=== PATIENT | female | born 1990 | race Two or more races ===

== ENCOUNTER 2023-10-25 07:37 | Emergency (ER) | payer OTHER, SELFPAY ==
[2023-10-25 07:40] VITALS: BP 140/76
[2023-10-25 08:06] LABS: COVID-19 Antigen Positive (Negative)
--- NOTE | 2023-10-25 09:53 | ED.GENMED ---
History of Present Illness
General
Chief Complaint: Cough
Source: patient
Exam Limitations: none
Time Seen by Provider: 10/25/23 09:17
Nursing documentation reviewed up to this point in time: agreed with
Travel History
Have you had any contact with someone who has COVID-19?: No
Do you have any symptoms of coronavirus? Fever > 100 degrees, chills, cough, shortness of breath, sore throat, loss of taste or smell, muscle aches, or headache?: Yes
Symptoms:: cough
History of Present Illness
History of Present Illness:
pt is a 32 y/o F with no sig pmh
Here with 2 days of URI symptoms, subjective fevers and chills, sore throat and a cough. She is not having any productivity of a cough. She is here requesting a COVID and flu test. No other family members are sick. She is not having any
shortness of breath. Patient denies nausea vomiting and diarrhea. She did not take any Tylenol today.
Patient is vaccinated for COVID
Past History
Past History
ED Past Medical History: None
ED Past Surgical History: None
Patient has exhibited threatening behavior?: No
Social History
Tobacco: Non-smoker
Alcohol: None
Drug: None
Review of Systems
Review of Systems
Allergies reviewed?: Yes
All Other Systems: Not applicable
Phy Exam
Physical Exam
Physical Exam:
GENERAL: Alert , in no apparent distress
EYE: pupils equal and reactive
NECK: Supple
ENT: b/l TM s clear, pharynx erythematous but no tonsillar hypertrophy or exudates
CARDIAC: Regular rate and rhythm, no edema
LUNGS: Clear breath sounds bilaterally, no acute respiratory distress, no wheezes/rales/rhonchi, occ cough
ABDOMEN: Soft, without focal tenderness, no r/g, no cvat, normal bowel sounds
NEUROLOGICAL: Alert and oriented, no focal neuro deficits
SKIN: Warm and dry, skin intact.
MUSCULOSKELETAL: No edema, well perfused.
PSYCH: Normal and appropriate interaction.
Course
Orders/Labs/Results
Orders:
Orders
10/25/23 07:44
COVID-19 Antigen Urgent
Source: Nasal Swab
Influenza A+B Rapid Molecular Urgent
[facility] Source: Nasal Swab
Specimen Description:
Abnormal Lab Results
10/25/23
07:44
SARS-CoV-2 Antigen Positive A
(Negative)
Vital Signs
Initial and Last Documented VS:
Initial Vital Signs
Temp Pulse Resp BP Pulse Ox
98.7 F 99 16 140/76 100
10/25/23 07:40 10/25/23 07:40 10/25/23 07:40 10/25/23 07:40 10/25/23 07:40
Last Documented Vital Signs
Temp Pulse Resp BP Pulse Ox
98.7 F 99 16 140/76 100
10/25/23 07:40 10/25/23 07:40 10/25/23 07:40 10/25/23 07:40 10/25/23 07:40
MDM/Problems Addressed
Differential Diagnosis Includes:
COVID, flu
MDM/Problems Addressed:
32-year-old female with 2 days of URI symptoms, subjective fevers and chills. No fever today, no shortness of breath. On exam the patient is well-appearing, in no distress, HEENT exam is mild erythema of the pharynx but otherwise normal phonation,
no exudates, ears clear. Her lungs are clear, she has an occasional dry cough. She is not tachypneic. Patient tested positive for COVID-19. She is vaccinated. She has had symptoms for more than 2 days. DC home for supportive care
*Critical Care Note
Total Time (30-74mins, 75-104mins- exclusive of procedures): Not Applicable
ED Attending Note
-
Portions of this chart may have been created with voice recognition software.� Occasional wrong word or��sound alike� substitutions may have occurred due to the inherent limitations of voice recognition software.
Discharge Plan
Departure
Patient Disposition: Home (Routine Discharge)
Date of Disposition: 10/25/23
Time of Disposition: 09:54
Patient with high blood pressure during this ER visit?: No
Condition: Fair
Covid-19: Not Applicable
Discharge Problem:
COVID-19
Instructions: COVID-19 (DC)
Prescriptions:
No Action
ondansetron 4 mg tablet,disintegrating
4 mg PO Q8H PRN (Reason: nausea and vomiting) Qty: 7 0RF
Referrals:
UNKNOWN - PT DOES,NOT KNOW [Family Provider] -
Stand Alone Forms: Return to Work
Activity Restrictions/Additional Instructions:
YOU HAVE COVID 19
STAY HOME FOR 5 DAYS
TAKE TYLENOL OR MOTRIN FOR PAIN/FEVERS
YOU CAN USE OVER THE COUTNER MEDICATIONS FOR YOUR SYPMTOMS
RETURN FOR SHORTNESS OF BREATH, OR ANY CONCERNS.
Interventions
Interventions:
*Risk Screen - Suicide Last Done: 10/25/23 07:40
*General Assessment Last Done: 10/25/23 10:03
*Neglect/Abuse Screening Last Done: 10/25/23 07:40
ED- Fall Risk Assessment Last Done: 10/25/23 10:03
*ED COVID-19 Vaccine History Last Done: 10/25/23 07:42
*Nursing Disposition Last Done: 10/25/23 10:03
ED- Pulmonary Assessment Last Done: 10/25/23 09:38
[2023-10-25 11:10] VITALS: BP 110/74
== END 2023-10-25 11:11 | disposition home or self-care (01) ==
LOC: EMR 07:37
PROVIDERS: Emergency Medicine; EMERGENCY PHYSICIAN Emergency Medicine
DX: U07.1 COVID-19 (principal)
CPT/HCPCS: 99282; 87502; 87811

== ENCOUNTER 2024-04-23 07:19 | Emergency (ER) | payer OTHER, SELFPAY ==
[2024-04-23 07:26] VITALS: BP 134/85
[2024-04-23 08:00] VITALS: BP 128/64
--- NOTE | 2024-04-23 08:46 | ED.GENMED ---
History of Present Illness
General
Chief Complaint: Skin Problem
Source: patient
Time Seen by Provider: 04/23/24 08:32
History of Present Illness
History of Present Illness:
33yoF with no significant past medical history presenting for evaluation of a rash. She reports a rash on the left side of her face and neck that initially began 2-3 days and has been gradually worsening. The rash is extremely painful but not itchy.
She has been taking Advil as needed with some relief. She believes she was bitten by an insect before her rash began. She denies any exposure to similar rash or a prior history of similar rashes in the past. She denies any fevers, chills, eye pain,
visual disturbance.
Past History
Past History
ED Past Medical History: None
ED Past Surgical History: None
Patient has exhibited threatening behavior?: No
Social History
Tobacco: Non-smoker
Alcohol: None
Drug: None
Phy Exam
General Physical Exam
General Presentation: well appearing
General age: appears stated age
General Skin: warm and dry
General Habitus: normal
General Mental: alert
ENT Exam
ENT Exam: TM's normal (No vesicular lesions on tympanic membranes or mouth)
Eye Exam
Eye Exam: PERRL and conjunctiva normal
Pulmonary Exam
Pulmonary Exam: no respiratory distress
Semora Coma Scale
Eye Opening: Spontaneous
Verbal Response: Oriented
Motor Response: Obeys Commands
GCS Total Score: 15
Skin Exam
Skin Exam: warm/dry and other (Scattered vesicular lesions on the L lower face/neck along a dermatomal pattern that are painful to touch consistent with zoster. No skin sloughing or signs of overlying cellulitis. )
Psychiatric Exam
Psychiatric Exam: normal mood/affect
Course
Vital Signs
Initial and Last Documented VS:
Initial Vital Signs
Temp Pulse Resp BP Pulse Ox
98.7 F 100 18 134/85 97
04/23/24 07:26 04/23/24 07:26 04/23/24 07:26 04/23/24 07:26 04/23/24 07:26
Last Documented Vital Signs
Temp Pulse Resp BP Pulse Ox
98.7 F 100 18 134/85 97
04/23/24 07:26 04/23/24 07:26 04/23/24 07:26 04/23/24 07:26 04/23/24 07:26
MDM/Problems Addressed
Differential Diagnosis Includes:
33yoF here with a painful rash to the L side of her face/neck x 3 days. No fevers. She is afebrile and hemodynamically stable. There are scattered vesicular lesions along a dermatomal pattern noted on exam consistent with herpes zoster. No signs of
superimposed infection. She denies any visual symptoms. No facial droop on exam and there are no vesicular lesions on the tympanic membranes.
She was started on a course of Valtrex and prednisone. Prescription provided for oxycodone for breakthrough pain. She was advised to keep the rash covered until scabbed over. Advised f/u with PCP and ED return precautions discussed including facial
droop or new visual symptoms. She expressed understanding and is agreeable to plan. She was discharged in stable condition.
*Critical Care Note
Total Time (30-74mins, 75-104mins- exclusive of procedures): Not Applicable
ED Attending Note
-
Portions of this chart may have been created with voice recognition software.� Occasional wrong word or��sound alike� substitutions may have occurred due to the inherent limitations of voice recognition software.
Discharge Plan
Departure
Patient Disposition: Home (Routine Discharge)
Date of Disposition: 04/23/24
Time of Disposition: 08:50
Patient with high blood pressure during this ER visit?: No
Discharge Problem:
Herpes zoster
Instructions: Shingles
Prescriptions:
New
valacyclovir [Valtrex] 1 gram tablet
1,000 mg PO Q8H 10 Days Qty: 30 0RF
prednisone 50 mg tablet
50 mg PO DAILY Qty: 5 0RF
oxycodone 5 mg tablet
5 mg PO Q6H PRN (Reason: Pain) Qty: 12 0RF
No Action
ondansetron 4 mg tablet,disintegrating
4 mg PO Q8H PRN (Reason: nausea and vomiting) Qty: 7 0RF
Referrals:
UNKNOWN - PT DOES,NOT KNOW [Family Provider] -
Stand Alone Forms: Return to Work
Activity Restrictions/Additional Instructions:
Take Valtrex and prednisone as prescribed. Take Tylenol and ibuprofen as needed for pain. Take oxycodone as needed for severe breakthrough pain.
Please follow-up with your family doctor. Return to the ER with any worsening symptoms, eye pain, vision changes, or facial droop.
Discharge Date and Time
Print Language: UPPER SORBIAN
== END 2024-04-23 09:15 | disposition home or self-care (01) ==
LOC: EMR 07:19
PROVIDERS: EMERGENCY PHYSICIAN Emergency Medicine
DX: B02.9 Zoster without complications (principal)
CPT/HCPCS: 99283